=== PATIENT | male | born 1980 | race African-American/Black ===

== ENCOUNTER 2020-01-18 11:40 | Emergency (ER) | payer OTHER ==
[~2020-01-18] VITALS: Ht 180.3 cm; Wt 81.6 kg
--- NOTE | 2020-01-18 11:42 | NUR ---
ED Nurse Note: Pt from home walked in due to re-occuring sore throat, coughing green phlegm with congestion for months. Denies any recent travel. Reports he was given azithromycin from his PCP. AAO x4, ambulatory with non labored breathing.
[2020-01-18 11:43] VITALS: BP 123/89
[2020-01-18] MEDS ORDERED: NASONEX17 GM NASAL (11:49)
[2020-01-18] MEDS ORDERED: AMOXICILLIN500 MG ORAL (11:49)
[2020-01-18 11:55] VITALS: BP 135/70
--- NOTE | 2020-01-18 11:55 | NUR ---
ER DISCHARGE NOTE: Patient is cleared to be discharged per ERMD, pt is aox4, on room air, with stable vital signs. pt was given dc and prescription instructions, pt was able to verbalize understanding, pt id band removed without complications. pt is able to ambulate with steady gait. pt took all belongings.
--- NOTE | 2020-01-18 11:56 | Emergency Room Report ---
History of Present Illness General Chief Complaint: Upper Respiratory Illness Source: Patient Present Illness HPI Patient is a 39-year-old male presents after increased sore throat. Reports having gradual worsening pain over the past 2 weeks. Reports of increased productive cough as well as increased sore throat. Denies any difficulty with breathing. Denies any vomiting diarrhea or shortness of breath. Denies any leg pain or swelling. Patient does not take medications other than Discovy for prep. Allergies: Coded Allergies: GLUTEN (Verified Allergy, Unknown, 01/18/20) COVID-19 Screening Contact w/high risk pt: No Recent Travel to affected area: No Experienced COVID-19 symptoms?: Yes COVID-19 symptoms experienced: Cough Patient History Reviewed Nursing Documentation: PMH: Agreed; PSxH: Agreed Nursing Documentation-PMH Past Medical History: No Stated History Review of Systems All Other Systems: negative except mentioned in HPI Physical Exam Vital Signs Date Time Temp Pulse Resp B/P (MAP) Pulse Ox O2 Delivery O2 Flow Rate FiO2 01/18/20 11:32 99.0 79 15 123/89 (100) 100 Room Air General Appearance: well appearing, no apparent distress, alert, GCS 15 Head: normocephalic, atraumatic ENT: hearing grossly normal, normal voice Neck: full range of motion, supple Respiratory: lungs clear, no respiratory distress, speaking full sentences Cardiovascular #1: normal peripheral pulses, no edema Gastrointestinal: normal inspection, soft Musculoskeletal: normal inspection, no calf tenderness Neurologic: alert, motor strength/tone normal, assistant chief engineer III-XII nml as tested, oriented x3, normal gait Psychiatric: mood/affect normal Skin: no rash Medical Decision Making Diagnostic Impression: Primary Impression: Pharyngitis ER Course Patient presented for sore throat. Differential diagnosis include was not limited to pharyngitis, bronchitis, Covid 19 among others. Patient has a benign exam and does not appear to require any imaging or laboratory testing at this time. Patient does not appear to have any evidence of respiratory distress at this time. Patient was advised to self quarantine. He is advised to return if he began having any increased dizziness, shortness of breath or other concerns. The patient is advised to follow up with primary care doctor in 1-2 days. Patient was given prescription for nasal steroids as well as azithromycin. Patient is advised to return if any worsening condition or if any changes in status that are concerning. This report is dictated with [employer] electric truck driver software which may occasionally lead to discrepancies related to use of this software. Last Vital Signs Date Time Temp Pulse Resp B/P (MAP) Pulse Ox O2 Delivery O2 Flow Rate FiO2 01/18/20 11:43 98.9 79 15 123/89 100 Room Air Status: improved Disposition: HOME, SELF-CARE Condition: Stable Scripts Mometasone Furoate (NASONEX) 17 Gm [place].pump 2 SPRAYS NASAL DAILY, #1 GM 0 Refills Prov: Roberto Fortune MD 01/18/20 Amoxicillin* (AMOXIL*) 500 Mg Capsule 500 MG ORAL THREE TIMES A DAY, #21 CAP Prov: Roberto Fortune MD 01/18/20 Patient Instructions: Pharyngitis Additional Instructions: Follow up with your doctor for recheck. Self quarantine for 2 weeks. Return if short of breath or other concerns. Roberto Fortune MD Jan 18, 2020 11:56
== END 2020-01-18 11:55 | disposition home or self-care (01) ==
LOC: EDBD 11:40 → EMR 11:54
DX: J02.9 Acute pharyngitis, unspecified (principal); R05 Cough
CPT/HCPCS: 99282